=== PATIENT | male | born 1970 | race Caucasian/White ===

== ENCOUNTER 2022-10-18 05:18 | Inpatient (IN) | payer OTHER ==
[~2022-10-18] VITALS: Ht 162.6 cm; Wt 75.8 kg
[2022-10-18 06:55] LABS: CHLORIDE 107 mEq/L (98-107)
[2022-10-18 06:58] LABS: BASOPHILS % 0.6 % (0.0-2.0); EOSINOPHILS % 1.8 % (0.0-5.0); HEMATOCRIT. 35.3 % (42.0-52.0); HEMOGLOBIN. 12.5 g/dL (14.0-18.0); MEAN CORPUSCULAR VOLUME 101.8 fL (80.0-94.0); MEAN PLATELET VOLUME 8.4 fl (7.4-10.4); MONOCYTES % 12.2 % (2.0-8.0); NEUTROPHILS % 71.4 % (40.0-76.0); PLATELET 108 x1000/uL (130-400); RED BLOOD CELL COUNT 3.46 mill/uL (4.7-6.1); RED CELL DISTRIBUTION WIDTH 13.4 % (11.6-14.6)
[2022-10-18 10:28] LABS: INR 1.3; PROTHROMBIN TIME 13.7 sec (9.6-11.0)
[2022-10-18] MEDS ORDERED: SODIUM BICARBONATE 4% (2.4MEQ) 5ML VIAL IV ONE (11:27)
[2022-10-18] MEDS ORDERED: LIDOCAINE HCL 1% 10 MG/ML 10ML VIAL ONE (11:28)
[2022-10-18] MEDS ORDERED: ONDANSETRON HCL 4MG/2ML INJ IV PRN (13:00)
[2022-10-18] MEDS: FUROSEMIDE 40MG/4ML VIAL IVP SCH ×3 (15:45→18:31)
[2022-10-18 16:40] VITALS: BP 133/74; PULSE 113; RESP 20; TEMP 98.5
[2022-10-18 17:01] VITALS: BP 133/74; PULSE 113; RESP 18; TEMP 98.5
[2022-10-18 20:00] VITALS: BP 141/86; PULSE 105; RESP 20; TEMP 97.6
[2022-10-18] MEDS ORDERED: LORAZEPAM 2MG/ML CPJ IV PRN (20:15)
[2022-10-18 21:44] LABS: HEPATITIS B SURFACE ANTIGEN NEGATIVE
[2022-10-18] MEDS: LACTULOSE 20G/30ML UDC PO SCH (21:59)
[2022-10-18] MEDS: CHLORDIAZEPOXIDE 25MG CAPSULE PO SCH (21:59)
[2022-10-18 23:29] LABS: *AMPHETAMINES SCREEN URINE NEGATIVE (NEGATIVE); *BARBITURATES SCREEN URINE NEGATIVE (NEGATIVE); *BENZODIAZEPINES SCREEN URINE NEGATIVE (NEGATIVE); *COCAINE SCREEN URINE NEGATIVE (NEGATIVE); CANNABINOID URINE SCREEN NEGATIVE (NEGATIVE); METHADONE URINE SCREEN NEGATIVE (NEGATIVE); OPIATES URINE SCREEN NEGATIVE (NEGATIVE); PHENCYCLIDINE URINE SCREEN NEGATIVE (NEGATIVE)
[2022-10-19] VITALS: BP 126/70; PULSE 109; RESP 15; TEMP 97.1
[2022-10-19 04:00] VITALS: BP 124/72; PULSE 97; RESP 21; TEMP 97.7
[2022-10-19] MEDS: CHLORDIAZEPOXIDE 25MG CAPSULE PO SCH ×3 (06:48→21:35)
[2022-10-19] MEDS: LACTULOSE 20G/30ML UDC PO SCH ×3 (06:48→21:35)
[2022-10-19 07:02] LABS: CHLORIDE 106 mEq/L (98-107)
[2022-10-19 08:00] VITALS: BP 140/65; PULSE 102; RESP 21; TEMP 97.7
[2022-10-19] MEDS ORDERED: PNEUMOCOCCAL 23-VAL P-SAC VAC 0.5 ML IM ONE (08:00)
[2022-10-19] MEDS: POTASSIUM CHLORIDE 20MEQ TABLET SR PO SCH (09:52)
[2022-10-19] MEDS: METOLAZONE 2.5MG TABLET PO SCH (09:52)
[2022-10-19] MEDS ORDERED: NALOXONE HCL 0.4MG/ML VIAL IV PRN (10:45)
[2022-10-19 12:00] VITALS: BP 126/78; PULSE 96; RESP 21; TEMP 97.7
[2022-10-19] MEDS: FUROSEMIDE 40MG/4ML VIAL IVP SCH ×2 (12:03→17:53)
[2022-10-19 16:00] VITALS: BP 118/82; PULSE 96; RESP 21; TEMP 97.7
[2022-10-19 20:00] VITALS: BP 132/89; PULSE 101; RESP 24; TEMP 98.7
[2022-10-19] MEDS ORDERED: POTASSIUM CHLORIDE 20MEQ TABLET SR PO NR (20:15)
[2022-10-20] VITALS: BP 115/68; PULSE 103; RESP 25; TEMP 98
[2022-10-20 04:00] VITALS: BP 96/60; PULSE 105; RESP 22; TEMP 97.8
[2022-10-20] MEDS: CHLORDIAZEPOXIDE 25MG CAPSULE PO SCH (06:32)
[2022-10-20] MEDS: LACTULOSE 20G/30ML UDC PO SCH (06:32)
[2022-10-20 08:00] VITALS: BP 115/62; PULSE 109; RESP 22; TEMP 98.6
[2022-10-20] MEDS: METOLAZONE 2.5MG TABLET PO SCH (08:19)
[2022-10-20] MEDS: POTASSIUM CHLORIDE 20MEQ TABLET SR PO SCH (08:19)
[2022-10-20] MEDS: FUROSEMIDE 40MG/4ML VIAL IVP SCH (08:19)
[2022-10-20] MEDS ORDERED: METO2.5T2 MT (09:42)
[2022-10-20] MEDS ORDERED: FURO80TA87 MT (09:42)
[2022-10-20] MEDS ORDERED: POTA-205 MT (09:42)
[2022-10-20] MEDS ORDERED: LACT10SO7 MT (10:18)
[2022-10-20 11:02] VITALS: BP 120/78; PULSE 106; TEMP 97.6; O2SAT 96
== END 2022-10-20 14:10 | disposition home or self-care (01) | DRG 432 ==
LOC: ER 05:18 → 3WST 12:38 → EDBEDREQTM 12:45 → EDBEDREQ 12:45
PROVIDERS: ADMIT Internal Medicine; ATTEND Internal Medicine
PROC: 0W9G3ZZ Drainage of Peritoneal Cavity, Percutaneous Approach (ICD-10-PCS; principal; 2022-10-18)
DX: K74.60 Unspecified cirrhosis of liver (principal); E43 Unspecified severe protein-calorie malnutrition; E87.1 Hypo-osmolality and hyponatremia; R18.8 Other ascites; D64.9 Anemia, unspecified; F10.10 Alcohol abuse, uncomplicated; D69.6 Thrombocytopenia, unspecified; N50.89 Other specified disorders of the male genital organs; Y90.9 Presence of alcohol in blood, level not specified; E87.6 Hypokalemia; Z20.822 Contact with and (suspected) exposure to COVID-19; Z68.28 Body mass index [BMI] 28.0-28.9, adult
CPT/HCPCS: 36415; 49083; 71045; 76700; 80048; 80053; 80305; 82140; 83880; 85025; 86803; 87075; 87340; 87426; 99285; C9803; J1940; J3490

== ENCOUNTER 2022-12-12 13:35 | Inpatient (IN) | payer OTHER ==
[~2022-12-12] VITALS: Ht 162.6 cm; Wt 79.8 kg
[~2022-12-12 13:35] MED LIST: FURO80TA87 MT; LACT10SO7 MT; METO2.5T2 MT; POTA-205 MT
[2022-12-12 14:57] LABS: BASOPHILS % 0.9 % (0.0-2.0); EOSINOPHILS % 2.1 % (0.0-5.0); HEMATOCRIT. 31.1 % (42.0-52.0); HEMOGLOBIN. 10.8 g/dL (14.0-18.0); LYMPHOCYTES % 17.5 % (20.0-50.0); MEAN CORPUSCULAR HEMOGLOBIN 34.3 pg (28.0-32.0); MEAN CORPUSCULAR HGB CONC 34.8 g/dL (31.0-37.0); MEAN CORPUSCULAR VOLUME 98.5 fL (80.0-94.0); MEAN PLATELET VOLUME 8.4 fl (7.4-10.4); MONOCYTES % 12.7 % (2.0-8.0); NEUTROPHILS % 66.8 % (40.0-76.0); PLATELET 95 x1000/uL (130-400); RED BLOOD CELL COUNT 3.16 mill/uL (4.7-6.1); RED CELL DISTRIBUTION WIDTH 14.8 % (11.6-14.6); WHITE BLOOD COUNT 7.3 x1000/uL (4.5-11.0)
[2022-12-12 15:22] LABS: CHLORIDE 111 mEq/L (98-107); INDEX HEMOLYSI 1 (1-3); INDEX ICTERIC 2 (1-4); INDEX LIPEMIC 1 (1-3); POTASSIUM 3.9 mEq/L (3.5-5.1); SODIUM 135 mEq/L (136-145)
[2022-12-12 15:31] LABS: ALANINE AMINOTRANSFERASE 48 IU/L (13-61); ASPARTATE AMINOTRANSFERASE 73 IU/L (15-37); BILIRUBIN TOTAL 2.8 mg/dL (0.1-1.0); CALCIUM 7.7 mg/dL (8.5-10.1); CARBON DIOXIDE 25 mEq/L (21-32); CREATININE 0.7 mg/dL (0.6-1.3); GLUCOSE 93 mg/dL (70-105); PROTEIN TOTAL 6.7 g/dL (6.0-8.3); UREA NITROGEN BLOOD 8 mg/dL (7-21)
[2022-12-12] MEDS ORDERED: FUROSEMIDE 40MG/4ML VIAL IVP ONE (18:45)
[2022-12-12 19:37] LABS: INR 1.3; PARTIAL THROMBOPLASTIN TIME 31.9 sec (23.4-31.0)
[2022-12-13] MEDS ORDERED: ACETAMINOPHEN 325MG TABLET PO PRN (11:30)
[2022-12-13] MEDS ORDERED: ONDANSETRON HCL 4MG/2ML INJ IV PRN (11:30)
[2022-12-13] MEDS: SPIRONOLACTONE 50MG TABLET PO SCH (13:50)
[2022-12-13] MEDS: FUROSEMIDE 100MG/10ML VIAL IVP SCH ×2 (13:50→17:00)
[2022-12-13 19:58] VITALS: BP 133/66; PULSE 91; RESP 20; TEMP 97.5
[2022-12-13 20:00] VITALS: BP 119/75; PULSE 89; RESP 18; TEMP 98.6
[2022-12-14] VITALS: BP 121/75; PULSE 78; RESP 16; TEMP 98.4
[2022-12-14 04:00] VITALS: BP 117/72; PULSE 74; RESP 16; TEMP 98.4
[2022-12-14] MEDS: SPIRONOLACTONE 50MG TABLET PO SCH (08:20)
[2022-12-14] MEDS: FUROSEMIDE 100MG/10ML VIAL IVP SCH (08:20)
[2022-12-14] MEDS ORDERED: SODIUM BICARBONATE 4% (2.4MEQ) 5ML VIAL IV ONE (09:46)
[2022-12-14] MEDS ORDERED: LIDOCAINE HCL 1% 10 MG/ML 10ML VIAL ONE (09:46)
[2022-12-14 13:19] LABS: BODY FLUID MONOCYTES 67 %
[2022-12-14 13:44] LABS: BODY FLUID RBC 680 /cu mm (0-2000); BODY FLUID WBC 275 /cu mm (0-200)
[2022-12-14] MEDS ORDERED: LACT10SO7 MT (14:25)
[2022-12-14] MEDS ORDERED: METO2.5T2 MT (14:25)
[2022-12-14] MEDS ORDERED: FURO80TA87 MT (14:25)
[2022-12-14] MEDS ORDERED: POTA-205 MT (14:25)
[2022-12-14 14:39] VITALS: BP 106/62; PULSE 89; TEMP 99; O2SAT 99
== END 2022-12-14 15:05 | disposition home or self-care (01) | DRG 433 ==
LOC: ER 13:41 → MICUSO 19:27 → EDBEDREQ 21:21 → EDBEDREQTM 21:21 → 6EST 12-13 11:20
PROVIDERS: ADMIT Internal Medicine; ATTEND Internal Medicine
PROC: 0W9G3ZZ Drainage of Peritoneal Cavity, Percutaneous Approach (ICD-10-PCS; principal; 2022-12-14)
DX: K70.31 Alcoholic cirrhosis of liver with ascites (principal); E46 Unspecified protein-calorie malnutrition; E87.1 Hypo-osmolality and hyponatremia; D64.9 Anemia, unspecified; D69.6 Thrombocytopenia, unspecified; R74.01 Elevation of levels of liver transaminase levels; Z79.899 Other long term (current) drug therapy
CPT/HCPCS: 36415; 49083; 71045; 80053; 83880; 85025; 86850; 86900; 93005; 99285; J1940; J3490